=== PATIENT | female | born 1975 | race Caucasian/White ===

== ENCOUNTER → 2018-09-06 | Outpatient (CLI) | payer BC ==
[~2018-09-06] MED LIST: ALBU90OI6 INH; CETI10 PO; CRUTCH4 USE; DIPH25 PO; DOCU100; ESOM20; ESOM20 PO; HYDACE5 PO; IBUP400 PO; LANS15EC PO; LAVAP17G PO; METF500 PO; METO10 PO; NAPR550; ONDA4; ONDA4ODT MM; OXYACE5T PO; Omeprazole20 M1 PO; PRED20 PO; Percocet 5-3251 EACH PO; SENN187 PO; TRAM50 PO; Zofran Odt4 MG SL
[2018-09-06 08:09] LABS: BASOPHILS ABSOLUTE AUTO 0.04 K/mm3 (0.00-0.23); BASOPHILS PERCENT AUTO 1 % (0-2); EOSINOPHILS ABSOLUTE AUTO 0.24 K/mm3 (0.00-0.68); EOSINOPHILS PERCENT AUTO 3 % (0-6); Hematocrit 42.5 % (33.0-51.0); Hemoglobin 14.9 g/dL (11.5-16.0); IMMATURE GRAN ABSOLUTE AUTO 0.01 K/mm3 (0.00-0.10); IMMATURE GRAN PERCENT AUTO 0 % (0-1); LYMPHOCYTES ABSOLUTE AUTO 3.31 K/mm3 (0.84-5.20); LYMPHOCYTES PERCENT AUTO 47 % (21-46); MONOCYTES ABSOLUTE AUTO 0.42 K/mm3 (0.16-1.47); MONOCYTES PERCENT AUTO 6 % (4-13); Mean Corpuscular HGB 29.7 pg (26.0-34.0); Mean Corpuscular HGB Conc 35.1 g/dL (31.5-36.5); Mean Corpuscular Volume 85 fL (80-100); Mean Platelet Volume 10.9 fL (9.1-12.4); NEUTROPHILS ABSOLUTE AUTO 2.98 K/mm3 (1.96-9.15); NEUTROPHILS PERCENT AUTO 43 % (41-73); Platelet Count 329 K/mm3 (150-400); RDW Standard Deviation 39.4 fL (35.1-46.3); Red Blood Cell Count 5.01 M/mm3 (3.80-5.20)
[2018-09-06 08:33] LABS: Alanine Aminotransfer (ALT/SGP 20 U/L (12-78); Albumin/Globulin Ratio 1.1 (0.8-1.8); Alk Phos 80 U/L (40-126); Anion Gap 8 mmol/L (6-16); Aspartate Aminotrans (AST/SGOT 17 U/L (12-37); Bilirubin, Total 0.5 mg/dL (0.1-1.0); Blood Urea Nitrogen 14 mg/dL (8-24); Bun/Creatinine Ratio 16.9 (12.0-20.0); CO2, Blood 29 mmol/L (21-32); Calcium, Blood 9.3 mg/dL (8.5-10.1); Chloride, Blood 103 mmol/L (98-108); Creatinine, Blood 0.83 mg/dL (0.40-1.00); Free Thyroxine 1.13 ng/dL (0.70-1.60); Globulin, Blood 3.6 g/dL (2.2-4.0); Glomerular Filtration Rate >60 (60-); Glucose, Blood 121 mg/dL (70-99); Potassium, Blood 3.1 mmol/L (3.5-5.5); Sodium, Blood 140 mmol/L (136-145); Thyroid Stimulating Hormone 2.391 uIU/mL (0.360-4.800); Total Protein, Blood 7.6 g/dL (6.4-8.2)
== END | disposition home or self-care (01) ==
LOC: LAB EV 08:04 → LAB SHORT 08:04
PROVIDERS: General Practice
DX: R53.83 Other fatigue (principal)
CPT/HCPCS: 80053; 84439; 84443; 85025

== ENCOUNTER 2019-09-16 08:47 | Day surgery (SDC) | payer BC ==
[~2019-09-16] VITALS: Ht 157.5 cm; Wt 115.4 kg
[~2019-09-16 08:47] MED LIST changes: +ESOMEPRAZOLE MA40 MG PO; +NEXIUM 24HR20 M2 PO; +Prinivil10 MG PO; +VENL37.5ER PO
== END 2019-09-16 10:42 | disposition home or self-care (01) ==
LOC: ORSCSDS 08:47
PROVIDERS: Internal Medicine Gastroenterology
PROC: 0DBE8ZX Excision of Large Intestine, Via Natural or Artificial Opening Endoscopic, Diagnostic (ICD-10-PCS; principal; 2019-09-16 10:00)
PROC: 0DBK8ZX Excision of Ascending Colon, Via Natural or Artificial Opening Endoscopic, Diagnostic (ICD-10-PCS; principal; 2019-09-16 10:00)
PROC: 0DB68ZX Excision of Stomach, Via Natural or Artificial Opening Endoscopic, Diagnostic (ICD-10-PCS; principal; 2019-09-16 10:00)
DX: R19.4 Change in bowel habit (principal); Z86.010 Personal history of colon polyps; D12.2 Benign neoplasm of ascending colon; K21.9 Gastro-esophageal reflux disease without esophagitis; K44.9 Diaphragmatic hernia without obstruction or gangrene; K64.8 Other hemorrhoids; K64.4 Residual hemorrhoidal skin tags; K29.70 Gastritis, unspecified, without bleeding; J45.909 Unspecified asthma, uncomplicated; E66.01 Morbid (severe) obesity due to excess calories; Z68.42 Body mass index [BMI] 45.0-49.9, adult; I10 Essential (primary) hypertension; E88.81 Metabolic syndrome and other insulin resistance; E06.3 Autoimmune thyroiditis; Z79.899 Other long term (current) drug therapy
CPT/HCPCS: 88305; 88342; J2704; J7120

== ENCOUNTER 2022-10-03 20:54 | Inpatient (IN) | payer BC ==
[~2022-10-03] VITALS: Ht 157.5 cm; Wt 120.2 kg
[~2022-10-03 20:54] MED LIST changes: +Norco 5-325 Ta1 EACH PO
[2022-10-03] MEDS ORDERED: ATOMOXETINE HCL40 M3 PO (21:14)
[2022-10-03] MEDS ORDERED: ESOMEPRAZOLE MA20 MG PO (21:14)
[2022-10-03] MEDS ORDERED: LISINOPRIL 10 MG TAB (21:14)
[2022-10-03 21:45] LABS: BASOPHILS ABSOLUTE AUTO 0.03 K/mm3 (0.00-0.23); BASOPHILS PERCENT AUTO 0 % (0-2); EOSINOPHILS PERCENT AUTO 0 % (0-6); Hematocrit 41.9 % (33.0-51.0); Hemoglobin 14.5 g/dL (11.5-16.0); IMMATURE GRAN ABSOLUTE AUTO 0.07 K/mm3 (0.00-0.10); IMMATURE GRAN PERCENT AUTO 0 % (0-1); LYMPHOCYTES ABSOLUTE AUTO 1.66 K/mm3 (0.84-5.20); LYMPHOCYTES PERCENT AUTO 9 % (21-46); MONOCYTES ABSOLUTE AUTO 0.51 K/mm3 (0.16-1.47); MONOCYTES PERCENT AUTO 3 % (4-13); Mean Corpuscular HGB 29.4 pg (26.0-34.0); Mean Corpuscular HGB Conc 34.6 g/dL (31.5-36.5); Mean Corpuscular Volume 85 fL (80-100); Mean Platelet Volume 10.4 fL (9.1-12.4); NEUTROPHILS ABSOLUTE AUTO 15.93 K/mm3 (1.96-9.15); NEUTROPHILS PERCENT AUTO 88 % (41-73); Platelet Count 297 K/mm3 (150-400); RDW Coefficient Variation 12.7 % (11.7-14.2); RDW Standard Deviation 39.3 fL (35.1-46.3); Red Blood Cell Count 4.94 M/mm3 (3.80-5.20)
[2022-10-03 22:12] LABS: Albumin, Blood 3.7 g/dL (3.4-5.0); Albumin/Globulin Ratio 1.1 (0.8-1.8); Bilirubin, Total 0.4 mg/dL (0.1-1.0); Bun/Creatinine Ratio 27.5 (12.0-20.0); Calcium, Blood 8.9 mg/dL (8.5-10.1); Creatinine, Blood 0.73 mg/dL (0.40-1.00); Globulin, Blood 3.4 g/dL (2.2-4.0); Potassium, Blood 3.9 mmol/L (3.5-5.5); Total Protein, Blood 7.1 g/dL (6.4-8.2)
[2022-10-04 01:47] LABS: Source, Urine Clean Catch
[2022-10-04 01:54] LABS: Bilirubin, Urine Neg (Neg); Blood, Urine 1+ (Neg); Glucose Qualitative, Urine Neg (Neg); Ketones, Urine 1+ (Neg); Leukocyte Esterase, Urine Neg (Neg); Nitrite, Urine Neg (Neg); Protein, Urine 1+ (Neg); Urobilinogen, Urine NORM (Normal)
[2022-10-04 02:51] LABS: Appearance, Urine Hazy (Clear); Color, Urine Yellow (P-Yellow)
[2022-10-04 02:53] LABS: Bacteria Few /hpf; Red Blood Cells, Urine 0-2 /hpf (0-2); Squamous Epithelial Cells Mod /hpf (Few); White Blood Cells, Urine 0-2 /hpf (0-5)
[2022-10-04 07:04] LABS: Adenovirus F 40/41 Not Detected (NOT DETECT); Astrovirus Not Detected (NOT DETECT); Campylobacter Sp Not Detected (NOT DETECT); Cryptosporidium Not Detected (NOT DETECT); Cyclospora Cayetanensis Not Detected (NOT DETECT); E. Coli O157 Not Detected (NOT DETECT); Entamoeba Histolytica Not Detected (NOT DETECT); Enteroaggregative E. coli-EAEC Not Detected (NOT DETECT); Enteropathogenic E. coli-EPEC Not Detected (NOT DETECT); Enterotoxigenic E. coli-ETEC Not Detected (NOT DETECT); Giardia Lamblia Not Detected (NOT DETECT); Norovirus GI/GII Not Detected (NOT DETECT); Plesiomonas Shigelloides Not Detected (NOT DETECT); Rotavirus A Not Detected (NOT DETECT); Salmonella Sp Not Detected (NOT DETECT); Sapovirus Not Detected (NOT DETECT); Shiga Toxin-prod E. coli-STEC Not Detected (NOT DETECT); Shigella/Enteroin E. coli-EIEC Not Detected (NOT DETECT); Vibrio Cholerae Not Detected (NOT DETECT); Vibrio Sp Not Detected (NOT DETECT); Yersinia Enterocolitica Not Detected (NOT DETECT)
[2022-10-04 08:25] LABS: Hematocrit 38.9 % (33.0-51.0); Hemoglobin 13.3 g/dL (11.5-16.0)
--- NOTE | 2022-10-04 10:29 | NUR ---
BLOOD CX T.O. from Dr. Eng for blood cultures. Per ER-RN, cultures already drawn and sent to lab. Lab notified of order placed.
--- NOTE | 2022-10-04 10:33 | NUR ---
SPOKE WITH MD COOMBS AND RECEIVED VERBAL TO ENTER LACTIC ORDER NOW, MORPHINE 2-4MG Q 4 HRS IV PRN.
--- NOTE | 2022-10-04 13:42 | NUR ---
NS FOR SEPSIS PROTOCOL DIFFICULTY STARTING IV SO NS WAS GIVEN LATE. PG PLACED BY CHARGE. NS ORDER TIMED OUT. SINCERE ROCHA CONFIRMED WITH DR. COOMBS TO GIVE A TOTAL OF 3,500 ML BOLUS. 1,000 ML BOLUS GIVEN, NEW ORDER PLACED FOR ADDITIONAL 2,500 ML FOR A TOTAL OF 3,500 ML.
[2022-10-04 14:10] LABS: Hematocrit 36.1 % (33.0-51.0); Hemoglobin 12.5 g/dL (11.5-16.0)
--- NOTE | 2022-10-04 18:44 | NUR ---
SHIFT SUMMARY- PT AAOX4 TODAY. CALLS APPROPRIATELY. PAIN WELL CONTROLLED WITH MORPHINE IV. NURSE ASSIST TO BATHROOM.
[2022-10-04 22:10] LABS: Hemoglobin 12.5 g/dL (11.5-16.0)
[2022-10-05 05:18] LABS: BASOPHILS ABSOLUTE AUTO 0.05 K/mm3 (0.00-0.23); BASOPHILS PERCENT AUTO 1 % (0-2); EOSINOPHILS ABSOLUTE AUTO 0.16 K/mm3 (0.00-0.68); EOSINOPHILS PERCENT AUTO 2 % (0-6); Hematocrit 35.5 % (33.0-51.0); Hemoglobin 12.3 g/dL (11.5-16.0); IMMATURE GRAN ABSOLUTE AUTO 0.03 K/mm3 (0.00-0.10); IMMATURE GRAN PERCENT AUTO 0 % (0-1); LYMPHOCYTES ABSOLUTE AUTO 1.83 K/mm3 (0.84-5.20); LYMPHOCYTES PERCENT AUTO 19 % (21-46); MONOCYTES ABSOLUTE AUTO 0.58 K/mm3 (0.16-1.47); MONOCYTES PERCENT AUTO 6 % (4-13); Mean Corpuscular HGB Conc 34.6 g/dL (31.5-36.5); Mean Corpuscular Volume 84 fL (80-100); Mean Platelet Volume 10.1 fL (9.1-12.4); NEUTROPHILS ABSOLUTE AUTO 7.25 K/mm3 (1.96-9.15); NEUTROPHILS PERCENT AUTO 73 % (41-73); Platelet Count 234 K/mm3 (150-400); RDW Coefficient Variation 13.1 % (11.7-14.2); RDW Standard Deviation 39.6 fL (35.1-46.3); Red Blood Cell Count 4.24 M/mm3 (3.80-5.20)
[2022-10-05 05:49] LABS: Albumin, Blood 2.9 g/dL (3.4-5.0); Bilirubin, Total 0.4 mg/dL (0.1-1.0); Bun/Creatinine Ratio 6.7 (12.0-20.0); Calcium, Blood 8.5 mg/dL (8.5-10.1); Creatinine, Blood 0.6 mg/dL (0.40-1.00); Globulin, Blood 2.8 g/dL (2.2-4.0); Potassium, Blood 3.2 mmol/L (3.5-5.5); Total Protein, Blood 5.7 g/dL (6.4-8.2)
--- NOTE | 2022-10-05 06:48 | NUR ---
SHIFT SUMMARY PT A&O X 4, PT DIARRHEA DECREASED T/O NIGHT - SMALL AMOUNT OF BLOOD PASSED WITHOUT BM T/O NIGHT- INFUSED ANTIBIOTIC ONCE T/O NIGHT- PT TOLERATED WELL- CALL TO DR. MASON -PT REQUESTED PROBIOTIC- STARTED TONIGHT- SPOUSE SLEPT IN CHAIR NEXT TO BED, BED LOW POSITION, CALL LIGHT IN REACH- MEDICATED PT WITH TYLENOL FOR HEADACHE- PT CONTINUES TO DENY NAUSEA AND ABDOMEN PAIN- PT INDEPENDENT IN ROOM AND TURNS SELF
--- NOTE | 2022-10-05 16:46 | NUR ---
SHIFT SUMMARY: PATIENT A&OX4. CALM, PLEASANT, AND COOPERATIVE c CARE. USES CALL LIGHT APPROPRIATELY AND ABLE TO ADVOCATE FOR HER NEEDS. PATIENT REPORTS NO BM THIS SHIFT. LAST BM SHE HAD WAS AROUND 0600 TODAY. PATIENT ON CL DIET FOR BREAKFAST AND LUNCH, TOLERATED WELL. DENIES N/V. DENIES ABDOMINAL PAIN/DISCOMFORT AFTER MEALS. PATIENT REQUESTED TO BE PLACE ON FL DIET FOR DINNER. PATIENT HAS BEEN AMBULATING TO BATHROOM AND BACK TO BED INDEPENDENTLY. RECEIVED SCHEDULED ABX THIS SHIFT. PATIENT ON TELE, SR IN LOW 90'S BPM PER DIRECTOR HRISSIMI. DENIES CP/CHEST PRESSURE. VITAL SIGNS REVIEWED. POWERGLIDE TO KAMINI SALINE LOCKED. CALL LIGHT IN REACH.
--- NOTE | 2022-10-06 05:03 | NUR ---
PATIENT HAS NOT HAD ANY LOOSE OR SOFT STOOLS SINCE YESTERDAY MORNING AFTER BREAKFAST. DIET WAS ADVNACED TO A FULL LIQUID AT DINNER, AND AGAIN, PATIENT TOLERATED WELL. NO COMPLAINTS OF PAIN. SHE WAS DISAPOINTED THAT SHE WAS UNABLE TO TAKE A SHOWER LAST NIGHT HER HR WOULD IMMEDIATELY JUMP INTO THE 140'S 150'S EACH TIME SHE WOULD GET OOB. SPOKE WITH HOSPITALIST WHO AGREED THAT ONLY AFTER DAY HOSPITALIST HAD EVALUATED HER SHOULD SHE BE ALLOWED TO BATH WITHOUT FULL ASSIST. TOLERATING IV ANTIBIOTIC WELL
[2022-10-06 06:16] LABS: BASOPHILS ABSOLUTE AUTO 0.01 K/mm3 (0.00-0.23); BASOPHILS PERCENT AUTO 0 % (0-2); EOSINOPHILS PERCENT AUTO 7 % (0-6); Hematocrit 35.8 % (33.0-51.0); Hemoglobin 12.7 g/dL (11.5-16.0); IMMATURE GRAN ABSOLUTE AUTO 0.03 K/mm3 (0.00-0.10); IMMATURE GRAN PERCENT AUTO 0 % (0-1); LYMPHOCYTES ABSOLUTE AUTO 0.86 K/mm3 (0.84-5.20); LYMPHOCYTES PERCENT AUTO 12 % (21-46); MONOCYTES ABSOLUTE AUTO 0.45 K/mm3 (0.16-1.47); MONOCYTES PERCENT AUTO 6 % (4-13); Mean Corpuscular HGB 29.5 pg (26.0-34.0); Mean Corpuscular HGB Conc 35.5 g/dL (31.5-36.5); Mean Corpuscular Volume 83 fL (80-100); Mean Platelet Volume 10.6 fL (9.1-12.4); NEUTROPHILS ABSOLUTE AUTO 5.63 K/mm3 (1.96-9.15); NEUTROPHILS PERCENT AUTO 75 % (41-73); Platelet Count 231 K/mm3 (150-400); RDW Coefficient Variation 12.5 % (11.7-14.2); RDW Standard Deviation 38.1 fL (35.1-46.3); Red Blood Cell Count 4.31 M/mm3 (3.80-5.20); White Blood Cell Count 7.48 K/mm3 (4.00-11.30)
[2022-10-06 06:40] LABS: Calcium, Blood 8.7 mg/dL (8.5-10.1); Creatinine, Blood 0.67 mg/dL (0.40-1.00); Potassium, Blood 3.5 mmol/L (3.5-5.5)
[2022-10-06] MEDS ORDERED: LEVFLO500 PO (11:37)
[2022-10-06] MEDS ORDERED: VISBIOME 112.51 EACH PO (11:40)
[2022-10-06] MEDS ORDERED: SIME80CH PO (11:40)
--- NOTE | 2022-10-06 12:15 | NUR ---
NOTES/DISCHARGE SUMMARY: PATIENT ALERT AND ORIENTED X4. CALM, PLEASANT, AND COOPERATIVE c CARE. USES CALL LIGHT APPROPRIATELY AND ABLE TO ADVOCATE FOR HER NEEDS. PATIENT DENIES CP/CHEST PRESSURE. ON TELE, SR AT HIGH 70'S BPM, PER CLOTHING CUTTER SIMI POWERS. DENIES SOB, N/V. PATIENT REPORTS NO BM, LAST BM WAS YESTERDAY 10/05/22 AT 0600. PATIENT WAS ON FL DIET AT BREAKFAST AND TOLERATED WELL. REPORTS MILD GAS DISCOMFORT TO LOWER ABDOMEN AND HAS BEEN PASSING FLATULENCE. RECEIVED IV ABX. PATIENT HAD SHOWER THIS AM. VITAL SIGNS REVIEWED. POWERGLIDE TO KAMINI WAS DC'D. PATIENT DISCHARGE HOME. DISCHARGE INSTRUCTION PACKET GIVEN TO PATIENT. EDUCATE PATIENT REGARDING ADMITTING DX, S/S, TX, AND NEW PRESCRIBED MEDICATION. PATIENT STATED UNDERSTANDING AND NO FURTHER QUESTIONS. RX WAS FAXED TO PATIENT PREFERRED PHARMACY ([facility]). ALL PATIENT PERSONAL BELONGINGS WERE SENT HOME c THE PATIENT. PATIENT LEFT THE ROOM AT AROUND 1215, TRANSPORTED VIA WHEELCHAIR BY INSPECTOR SET UP AND LAY OUT STAFF, HUA VASQUEZ TO PATIENT SPOUSE PRIVATE VEHICLE.
== END 2022-10-06 12:14 | disposition home or self-care (01) | DRG 872 ==
LOC: ER 20:54 → MEDS 10-04 06:15
PROVIDERS: Student in an Organized Health Care Education/Training Program; ADMIT Internal Medicine
DX: A41.9 Sepsis, unspecified organism (principal); A09 Infectious gastroenteritis and colitis, unspecified; K92.1 Melena; I95.9 Hypotension, unspecified; K59.09 Other constipation; F41.9 Anxiety disorder, unspecified; F32.A Depression, unspecified; K21.9 Gastro-esophageal reflux disease without esophagitis; K58.9 Irritable bowel syndrome, unspecified; I10 Essential (primary) hypertension; F90.9 Attention-deficit hyperactivity disorder, unspecified type; E06.3 Autoimmune thyroiditis; Z90.49 Acquired absence of other specified parts of digestive tract; Z98.890 Other specified postprocedural states; Z90.710 Acquired absence of both cervix and uterus; Z90.721 Acquired absence of ovaries, unilateral; Z88.2 Allergy status to sulfonamides; Z88.0 Allergy status to penicillin; Z88.5 Allergy status to narcotic agent; Z88.1 Allergy status to other antibiotic agents; Z88.8 Allergy status to other drugs, medicaments and biological substances; Z79.899 Other long term (current) drug therapy; Z79.811 Long term (current) use of aromatase inhibitors; Z91.048 Other nonmedicinal substance allergy status
CPT/HCPCS: 36415; 71046; 74177; 80048; 80053; 81001; 82272; 83605; 84484; 85014; 85018; 85025; 87015; 87045; 87046; 87205; 87507; 87899; 93005; 93010; 96365-59; 96375; 96376; 99285-25; A9270; J0744; J2270; J2405; J3010; J7030; Q9967

== ENCOUNTER → 2023-02-26 | Outpatient (CLI) | payer BC ==
[~2023-02-26] MED LIST changes: +ATOMOXETINE HCL40 M3 PO; +ESOMEPRAZOLE MA20 MG PO; +LEVFLO500 PO; +LISINOPRIL 10 MG TAB; +SIME80CH PO; +VISBIOME 112.51 EACH PO
== END | disposition home or self-care (01) ==
LOC: LAB 09:15 → LAB SHORT 09:15
DX: K92.1 Melena (principal)
CPT/HCPCS: 83993

== ENCOUNTER 2023-05-25 07:54 | Day surgery (SDC) | payer BC ==
[~2023-05-25] VITALS: Ht 157.5 cm; Wt 119.5 kg
[2023-05-25] MEDS ORDERED: ESOM20 PO (08:31)
[2023-05-25 08:33] VITALS: BP 106/73
--- NOTE | 2023-05-25 09:14 | NUR ---
PRE-PROCEDURE NOTE PT A&OX4, BREATHING RA, AT BEDSIDE. Ambulatory in Day Surgery Patient confirms NPO status and agrees with scheduled surgery. Pre-PROCEDURE teaching done. Pt verbalizes understanding. PT BELONGINGS REMAIN IN [facility]SU IN PT BELONGINGS BAG.
--- NOTE | 2023-05-25 10:05 | NUR ---
05/25/23 [address] CARDOSO'S ANESTHESIA RECORD.
[2023-05-25 10:30] VITALS: BP 123/72
--- NOTE | 2023-05-25 10:30 | NUR ---
PT TO STEP DOWN IN DAY SURGERY. ALERT AND ORIENTED X3. ABLE TO MOVE SELF IN BED. NO COMPLAINTS. ICE CHIPS GIVEN PER REQUEST. AT BEDSIDE.
[2023-05-25 10:48] VITALS: BP 106/68
[2023-05-25 10:52] VITALS: BP 106/76
--- NOTE | 2023-05-25 10:52 | NUR ---
Patient up to Ambulate independently. Gait steady. Discharge instructions reviewed with patient. Patient verbalizes understanding. Copy given to patient to take home. Patient States Post-Procedure ride home has been arranged. Discharged via wheelchair to private car for ride home.
== END 2023-05-25 10:52 | disposition home or self-care (01) ==
LOC: ORSCMMR 07:54 → ORD 09:30 → ORSCMMR 10:52
PROVIDERS: Internal Medicine Gastroenterology
PROC: 0DJD8ZZ Inspection of Lower Intestinal Tract, Via Natural or Artificial Opening Endoscopic (ICD-10-PCS; principal; 2023-05-25 09:30)
DX: K52.9 Noninfective gastroenteritis and colitis, unspecified (principal); K64.4 Residual hemorrhoidal skin tags; Z86.010 Personal history of colon polyps; Z83.71 Family history of colonic polyps; K21.9 Gastro-esophageal reflux disease without esophagitis; G47.33 Obstructive sleep apnea (adult) (pediatric); E03.9 Hypothyroidism, unspecified; E66.01 Morbid (severe) obesity due to excess calories; Z68.42 Body mass index [BMI] 45.0-49.9, adult; Z79.899 Other long term (current) drug therapy
CPT/HCPCS: J2001; J2704; J7120